=== PATIENT | male | born 2000 | race Caucasian/White ===

== ENCOUNTER 2022-07-04 21:40 | Inpatient (IN) ==
--- NOTE | 2022-07-04 23:20 | Emergency Department Note ---
History of Present Illness General Chief complaint: Mental Health Evaluation Stated complaint: 201 ASSESSMENT Time Seen by Provider: 07/04/22 22:59 Source: patient Mode of arrival: ambulatory Limitations: no limitations History of Present Illness Provider complaint: Mental health evaluation This is a 21-year-old male presents for mental health evaluation is a [address] Patient with a history of depression and states he does see psychiatry. Patient's does occasionally use alcohol and marijuana recreationally. He does not feel it is a problem. He states he does take Prozac but has been inconsistent in doing so. Mother called case management to discuss her concerns as he has been making statements of suicidal ideation to her over phone and text all day. He does have prior history of depression and suicidal ideation. This evening after an argument with his older brother, he made statements of suicida lity and stated that he intended to cut his throat and had a kitchen knife sitting next to him. Home Medications Medication Instructions Recorded Confirmed Type fluoxetine 20 mg capsule 20 mg PO DAILY 07/05/22 07/05/22 History Allergies Allergy/AdvReac Type Severity Reaction Status Date / Time No Known Allergies Allergy Verified 07/05/22 10:41 Past Med/Surg History Social History Smoking Status: Current every day smoker Tobacco Type: E-cigarettes / Vaping Preferred Language: Faroese Communication Ability: Effective Sagger Soak Required: No Beliefs That Will Affect Care: None Feels Safe at Home: Yes Assistive Devices: Glasses Review of Systems A total of 10 systems reviewed and were otherwise negative All systems reviewed & are unremarkable except as noted in HPI & below Physical Exam Vital Signs Vital Signs - 24 hr 07/04/22 21:48 Temperature 36.8 C Temperature Source Oral Pulse Rate 101 H Respiratory Rate 20 Blood Pressure 134/85 Blood Pressure Mean 101 Pulse Oximetry 96 Oxygen Delivery Method Room Air Sepsis Recent Fever Within 48 Hours No Sepsis New/Unexplained Change in Mental Status N/A Sepsis Action Taken by Nursing No Action Required GENERAL: alert, well appearing, well nourished, no distress, non-toxic EYE EXAM: normal conjunctiva, PERRL and EOM's grossly intact OROPHARYNX: no exudate, no erythema, lips, buccal mucosa, and tongue normal and mucous membranes are moist NECK: supple, no nuchal rigidity, no adenopathy, non-tender LUNGS: Clear to auscultation. Normal chest wall mechanics, no w/r/r HEART: no murmurs, S1 normal and S2 normal ABDOMEN: abdomen soft, non-tender, normo-active bowel sounds, no masses, no rebound or guarding. BACK: Back is symmetrical on inspection and there is no deformity, no midline tenderness, no CVA tenderness. SKIN: no rashes and no bruising UPPER EXTREMITIES: upper extremities are grossly normal. FROM, nml pulses b/l. LOWER EXTREMITIES: No pitting edema. FROM, nml pulses b/l. NEURO EXAM: Normal sensorium, cranial nerves II-XII grossly intact, normal speech, no gross weakness of arms, no gross weakness of legs. Gross sensation intact. Course Course 0400: 201 signed by me. Medical Decision Making Differential Diagnosis Differential diagnoses considered include mood disorder, infection, hypoglycemia, electrolyte abnormalities, cardiac sources, intracerebral event, toxicologic, neurologic, as well as others. Medical Records Attestation: I reviewed the patient's medical records. Home Medications Current Medication List: was personally reviewed by me Laboratory Data Attestation: I reviewed the patient's lab results. Result diagrams: 07/04/22 23:35 07/04/22 23:35 Lab Results 07/04/22 07/04/22 07/04/22 Range/Units 21:56 21:56 21:56 WBC (4.8-10.8) K/ul RBC (4.63-6.08) M/uL Hgb (14.0-18.0) g/dl Hct (40.1-51.0) % MCV (80.0-100.0) fL MCH (25.0-34.0) pg MCHC (32.0-36.0) g/dL RDW Std Deviation (36.4-46.3) fL RDW Coeff of Frank (11.5-14.5) % Plt Count (130-400) K/uL MPV (9.4-12.4) fL Immature Gran % (Auto) % Neut % (Auto) % Lymph % (Auto) % Kidder % (Auto) % Eos % (Auto) % Baso % (Auto) % Neut # (Auto) (1.4-6.5) K/uL Lymph # (Auto) (1.2-3.4) K/uL Kidder # (Auto) (0.24-0.82) K/uL Eos # (Auto) (0-0.50) K/uL Baso # (Auto) (0-0.2) K/uL Immature Gran # (Auto) (0.00-0.02) K/uL Sodium (136-145) mmol/L Potassium (3.5-5.1) mmol/L Chloride (98-107) mmol/L Carbon Dioxide (21-32) mmol/L Anion Gap (3-11) BUN (6-23) mg/dl Creatinine (0.6-1.4) mg/dl Est Cr Clr Drug Dosing ml/min Est GFR ( Amer) ml/min Est GFR (Non-Af Amer) ml/min BUN/Creatinine Ratio (10-20) Glucose (70-99(Fasting)) mg/dl Calcium (8.5-10.1) mg/dl Total Bilirubin (0.2-1.0) mg/dl AST (13-39) U/L ALT (7-52) U/L Alkaline Phosphatase (34-104) U/L Total Protein (6.0-8.3) gm/dl Albumin (3.4-5.0) gm/dl Globulin (2.5-4.0) gm/dl Albumin/Globulin Ratio (0.9-2) TSH (0.300-4.500) uIu/ml Urine Color Yellow Urine Appearance Clear (Clear) Urine pH 6.5 (4.5-7.5) Ur Specific Mulberry 1.003 (1.000-1.030) Urine Protein Negative (Negative) Urine Glucose (UA) Negative (Negative) Urine Ketones Negative (Negative) Urine Blood Negative (Negative) Urine Nitrite Negative (Negative) Urine Bilirubin Negative (Negative) Urine Urobilinogen Negative (Negative) Ur Leukocyte Esterase Negative (Negative) Salicylates (3.0-30) mg/dl Urine Opiates Screen Neg (Neg) Ur Methadone, Qual Neg (Neg) Acetaminophen (10-30) ug/ml Urine Barbiturates Neg (Neg) Ur Phencyclidine (PCP) Neg (Neg) U Amphetamin/Meth Scrn Neg (Neg) MDMA (Ecstasy) Screen Neg (Neg) U Benzodiazepines Scrn Neg (Neg) Ur Cocaine Metabolite Neg (Neg) U Marijuana (THC) Screen Pos H (Neg) Ethyl Alcohol mg/dL (<10.0) mg/dl SARS-CoV-2, RNA, NAAT NEGATIVE (NEGATIVE) 07/04/22 07/04/22 07/04/22 Range/Units 23:35 23:35 23:35 WBC 4.43 L (4.8-10.8) K/ul RBC 4.99 (4.63-6.08) M/uL Hgb 15.3 (14.0-18.0) g/dl Hct 44.6 (40.1-51.0) % MCV 89.4 (80.0-100.0) fL MCH 30.7 (25.0-34.0) pg MCHC 34.3 (32.0-36.0) g/dL RDW Std Deviation 40.4 (36.4-46.3) fL RDW Coeff of Frank 12.6 (11.5-14.5) % Plt Count 311 (130-400) K/uL MPV 9.5 (9.4-12.4) fL Immature Gran % (Auto) 0.2 % Neut % (Auto) 53.5 % Lymph % (Auto) 35.9 % Kidder % (Auto) 8.6 % Eos % (Auto) 0.7 % Baso % (Auto) 1.1 % Neut # (Auto) 2.37 (1.4-6.5) K/uL Lymph # (Auto) 1.59 (1.2-3.4) K/uL Kidder # (Auto) 0.38 (0.24-0.82) K/uL Eos # (Auto) 0.03 (0-0.50) K/uL Baso # (Auto) 0.05 (0-0.2) K/uL Immature Gran # (Auto) 0.01 (0.00-0.02) K/uL Sodium 142 (136-145) mmol/L Potassium 3.9 (3.5-5.1) mmol/L Chloride 108 H (98-107) mmol/L Carbon Dioxide 27 (21-32) mmol/L Anion Gap 7 (3-11) BUN 7 (6-23) mg/dl Creatinine 0.72 (0.6-1.4) mg/dl Est Cr Clr Drug Dosing 140.5 ml/min Est GFR ( Amer) > 150.0 ml/min Est GFR (Non-Af Amer) 135.2 ml/min BUN/Creatinine Ratio 9.7 L (10-20) Glucose 93 (70-99(Fasting)) mg/dl Calcium 9.8 (8.5-10.1) mg/dl Total Bilirubin 0.4 (0.2-1.0) mg/dl AST 18 (13-39) U/L ALT 14 (7-52) U/L Alkaline Phosphatase 89 (34-104) U/L Total Protein 8.4 H (6.0-8.3) gm/dl Albumin 5.0 (3.4-5.0) gm/dl Globulin 3.4 (2.5-4.0) gm/dl Albumin/Globulin Ratio 1.5 (0.9-2) TSH 3.153 (0.300-4.500) uIu/ml Urine Color Urine Appearance (Clear) Urine pH (4.5-7.5) Ur Specific [place] (1.000-1.030) Urine Protein (Negative) Urine Glucose (UA) (Negative) Urine Ketones (Negative) Urine Blood (Negative) Urine Nitrite (Negative) Urine Bilirubin (Negative) Urine Urobilinogen (Negative) Ur Leukocyte Esterase (Negative) Salicylates (3.0-30) mg/dl Urine Opiates Screen (Neg) Ur Methadone, Qual (Neg) Acetaminophen (10-30) ug/ml Urine Barbiturates (Neg) Ur Phencyclidine (PCP) (Neg) U Amphetamin/Meth Scrn (Neg) MDMA (Ecstasy) Screen (Neg) U Benzodiazepines Scrn (Neg) Ur Cocaine Metabolite (Neg) U Marijuana (THC) Screen (Neg) Ethyl Alcohol mg/dL (<10.0) mg/dl SARS-CoV-2, RNA, NAAT (NEGATIVE) 07/04/22 07/04/22 Range/Units 23:35 23:35 WBC (4.8-10.8) K/ul RBC (4.63-6.08) M/uL Hgb (14.0-18.0) g/dl Hct (40.1-51.0) % MCV (80.0-100.0) fL MCH (25.0-34.0) pg MCHC (32.0-36.0) g/dL RDW Std Deviation (36.4-46.3) fL RDW Coeff of Frank (11.5-14.5) % Plt Count (130-400) K/uL MPV (9.4-12.4) fL Immature Gran % (Auto) % Neut % (Auto) % Lymph % (Auto) % Kidder % (Auto) % Eos % (Auto) % Baso % (Auto) % Neut # (Auto) (1.4-6.5) K/uL Lymph # (Auto) (1.2-3.4) K/uL Kidder # (Auto) (0.24-0.82) K/uL Eos # (Auto) (0-0.50) K/uL Baso # (Auto) (0-0.2) K/uL Immature Gran # (Auto) (0.00-0.02) K/uL Sodium (136-145) mmol/L Potassium (3.5-5.1) mmol/L Chloride (98-107) mmol/L Carbon Dioxide (21-32) mmol/L Anion Gap (3-11) BUN (6-23) mg/dl Creatinine (0.6-1.4) mg/dl Est Cr Clr Drug Dosing ml/min Est GFR ( Amer) ml/min Est GFR (Non-Af Amer) ml/min BUN/Creatinine Ratio (10-20) Glucose (70-99(Fasting)) mg/dl Calcium (8.5-10.1) mg/dl Total Bilirubin (0.2-1.0) mg/dl AST (13-39) U/L ALT (7-52) U/L Alkaline Phosphatase (34-104) U/L Total Protein (6.0-8.3) gm/dl Albumin (3.4-5.0) gm/dl Globulin (2.5-4.0) gm/dl Albumin/Globulin Ratio (0.9-2) TSH (0.300-4.500) uIu/ml Urine Color Urine Appearance (Clear) Urine pH (4.5-7.5) Ur Specific [place] (1.000-1.030) Urine Protein (Negative) Urine Glucose (UA) (Negative) Urine Ketones (Negative) Urine Blood (Negative) Urine Nitrite (Negative) Urine Bilirubin (Negative) Urine Urobilinogen (Negative) Ur Leukocyte Esterase (Negative) Salicylates < 3.0 L (3.0-30) mg/dl Urine Opiates Screen (Neg) Ur Methadone, Qual (Neg) Acetaminophen < 3 L (10-30) ug/ml Urine Barbiturates (Neg) Ur Phencyclidine (PCP) (Neg) U Amphetamin/Meth Scrn (Neg) MDMA (Ecstasy) Screen (Neg) U Benzodiazepines Scrn (Neg) Ur Cocaine Metabolite (Neg) U Marijuana (THC) Screen (Neg) Ethyl Alcohol mg/dL 129.4 H (<10.0) mg/dl SARS-CoV-2, RNA, NAAT (NEGATIVE) MDM Narrative This is a 21-year-old male presents emergency department for mental health evaluation. Patient with history of depression, admitted to suicidal ideation with a plan to cut his throat. Patient medically cleared and was evaluated by case management. Patient accepted to [facility] [address] for additional inpatient mental health treatment. Impression & Plan Depression, Alcoholic intoxication, Suicidal ideation Discharge Plan Visit Data Chief Complaint: Mental Health Evaluation Stated Complaint: 201 ASSESSMENT ED Provider: Imani Jones Discharge Problem: Depression, Alcoholic intoxication, Suicidal ideation Patient Disposition: Admitted As Inpatient Discharge Instructions Interventions: ED Discharge Assessment Last Done: 07/05/22 04:02
[2022-07-04 23:33] LABS: Appearance Urine Clear (Clear); Bilirubin Urine Negative (Negative); Blood Urine Negative (Negative); Color Urine Yellow; Glucose Urine UA Negative (Negative); Ketones Urine Negative (Negative); Leukocyte Esterase Urine Negative (Negative); Nitrite Urine Negative (Negative); Protein Urine Negative (Negative); Specific Gravity Urine 1.003 (1.000-1.030); Urobilinogen Urine Negative (Negative); pH Urine 6.5 (4.5-7.5)
[2022-07-04 23:56] LABS: Basophils # (auto) 0.05 K/uL (0-0.2); Basophils % (auto) 1.1 %; Eosinophils # (auto) 0.03 K/uL (0-0.50); Eosinophils % (auto) 0.7 %; Hematocrit (blood only) 44.6 % (40.1-51.0); Hemoglobin 15.3 g/dl (14.0-18.0); Immature Granulocytes # (auto) 0.01 K/uL (0.00-0.02); Immature Granulocytes % (auto) 0.2 %; Lymphocytes # (auto) 1.59 K/uL (1.2-3.4); Lymphocytes % (auto) 35.9 %; Mean Corpuscular Hemoglobin 30.7 pg (25.0-34.0); Mean Corpuscular Hgb Conc 34.3 g/dL (32.0-36.0); Mean Corpuscular Volume 89.4 fL (80.0-100.0); Mean Platelet Volume 9.5 fL (9.4-12.4); Monocytes # (auto) 0.38 K/uL (0.24-0.82); Monocytes % (auto) 8.6 %; Neutrophils # (auto) 2.37 K/uL (1.4-6.5); Neutrophils % (auto) 53.5 %; Platelet Count 311 K/uL (130-400); RDW Coefficient of Variation 12.6 % (11.5-14.5); RDW Standard Deviation 40.4 fL (36.4-46.3); Red Blood Count 4.99 M/uL (4.63-6.08); White Blood Count 4.43 K/ul (4.8-10.8)
[2022-07-05 00:25] LABS: Acetaminophen < 3 ug/ml (10-30); Salicylate < 3.0 mg/dl (3.0-30)
[2022-07-05 00:29] LABS: Alanine Aminotransferase 14 U/L (7-52); Albumin Globulin Ratio 1.5 (0.9-2); Alkaline Phosphatase 89 U/L (34-104); Anion Gap 7 (3-11); Aspartate Aminotransferase 18 U/L (13-39); BUN Creatinine Ratio 9.7 (10-20); Bilirubin,Total 0.4 mg/dl (0.2-1.0); Blood Urea Nitrogen 7 mg/dl (6-23); Calcium 9.8 mg/dl (8.5-10.1); Carbon Dioxide 27 mmol/L (21-32); Chloride 108 mmol/L (98-107); Creatinine Clr Calc Pharmacy 140.5 ml/min; Est GFR (African American) > 150.0 ml/min; Est GFR (Non-African American) 135.2 ml/min; Globulin 3.4 gm/dl (2.5-4.0); Glucose 93 mg/dl (70-99(Fasting)); Potassium 3.9 mmol/L (3.5-5.1); Sodium 142 mmol/L (136-145); Total Protein 8.4 gm/dl (6.0-8.3)
[2022-07-05 00:36] LABS: Amphetamines+Metham, Urine Neg (Neg); Barbiturates, Urine Neg (Neg); Benzodiazepine, Urine Neg (Neg); Cocaine, Urine Neg (Neg); MDMA (Ecstacy), Urine Neg (Neg); Methadone, Urine Neg (Neg); Opiate, Urine Neg (Neg); Phencyclidine, Urine Neg (Neg)
[2022-07-05] MEDS ORDERED: ALUMINUM/MAGNESIUM SUSP 30 ML UDC PO PRN (06:33)
[2022-07-05] MEDS ORDERED: hydrOXYzine HCl 25 MG TAB PO PRN ×2 (06:33)
[2022-07-05] MEDS ORDERED: MAGNESIUM HYDROXIDE SUSP 30 ML UDC PO PRN (06:33)
[2022-07-05] MEDS ORDERED: ACETAMINOPHEN 325 MG TAB PO PRN (06:33)
[2022-07-05] MEDS ORDERED: BISMUTH SUBSALICYLATE LIQD 236 ML PO PRN (06:33)
[2022-07-05] MEDS ORDERED: SODIUM CHLORIDE 0.65% NA SOLN 45 ML (OCEAN) PRN (06:33)
--- NOTE | 2022-07-05 08:44 | History & Physical ---
Date of Service July 05, 2022 Impression / Recommendations Impression 21 year old [employer] student with a history of depression and restrictive eating who was admitted for worsening depression and SI with a plan in the context of not feeling that [employer] is a good fit and struggling to find a group of peers he enjoys being with. Diagnostically consistent with major depressive disorder with anxious distress and restrictive eating per history. The patient is deemed unstable and requires psychiatric hospitalization for diagnostic clarification, safety and stabilization, medication management and development of further coping skills. Discussed medication treatment options in detail. Discussed risks, benefits and alternatives. Patient would like to start and consented to sertraline for MDD and anxiety. Reviewed side effects including but not limited to: GI, CIFUENTES, sexual side effects, and counseled on black box warning of potential for emergence of or increased SI and need to let staff know should this occur or should they feel unsafe. Also discussed importance of seeking emergency care following discharge if this side effect occurs in the future. (1) Recurrent severe major depressive disorder with anxiety: (2) Suicidal ideation: (3) Eating disorder, unspecified: Plan 07/05/22: The patient was admitted to the [facility] ([facility] mental health unit) on q15 min checks (behavioral with suicide precautions) for safety. The patient will participate in group, recreational, and milieu therapies and will be offered additional individual and family sessions as clinically appropriate. -Start sertraline 25mg qd tomorrow morning as he wants to discuss it with his family too prior to starting this and understands he can decline dose tomorrow if he changes his mind -Vistaril 50mg qhs prn for insomnia Inventory Assets Strengths: supportive relationships, willing to get treatment, motivated to do therapy Needs: safety and stabilization, medication adjustment, additional coping skills, increased outpatient services Suicide Risk Level Suicide Risk Level: High-Moderate (q15 min suicide checks) (High-Moderate due to severe depression with SI with plan prior to admission but feels safe in the hospital, able to safety contract and agrees to let nursing/staff know should they develop plan, intent or feel unable to remain safe.) Suicide Risk Level Comments: Risk Factors Assessment Male: Yes : Yes Do You Have Access To A Gun?: No Mental Health Diagnoses: Yes Previous Attempt: No Family History of Suicide: No Previous Psychiatric Hospitalization: Yes Protective Factors Assessment Employed: No Stable Relationships: Yes Supportive Family: Yes Psychiatric History Identifying Data HOANG HARTLEY is a 21-year-old and [employer] student who currently lives off-campus in an apartment with roommates, has a history of depression, anxiety and restrictive eating, and was admitted on 07/05/22 03:36 on a 201 voluntary commitment for depression and SI with plan. Chief Complaint "I'm been getting a lot more depressed". History of Present Illness Brought in by police after telling his mother that he was suicidal after drinking alcohol and getting into an argument with his brother. He called police, at the encouragement of his mother and sister, after considering using a knife with plan to cut his throat to . Restarted fluoxetine three days ago after having stopped it this summer due to side effects of making him feel numb. He restarted the fluoxetine because "I'd not been feeling good" which he elaborates as "feeling a disconnect", low motivation, social isolation, hopelessness, helplessness, low energy, sleep has been "fine" but more difficulty falling asleep, and very low appetite. Has lost ~7-8 lbs since the summer and has a history of restriction but feels weight loss in a combination of restriction and unintentional due to low appetite but it doesn't want to be losing weight and would like to regain what he's lost. Yesterday was the first day since that he re-developed suicidal ideation. He felt unable to remain safe on his own given that those thoughts had started. He's considering tra nsferring to a new college as he's been unhappy at [employer] and considering starting there after the fall semester. This process has been stressful in getting necessary paperwork completed by register. Notes that living with roommates has made eating more difficult at times especially with grocery shopping and they will sometimes eat his food that he's planned for meals. He notes his teenage and young adult years have been difficult and notes he often feels he gets taken advantage of. Has started vaping this year due to being more stressed out and struggles to relax especially in the evenings. Feels it's been difficult to engage with his mental health providers as those appointment were via telemedicine. Further recent history reviewed and confirmed via ED CM note from 07/04/22 and 07/05/22 with clarifications in bold: "Met with Hoang bedside to complete mental health evaluation. Hoang stated he had "a meltdown after I saw my brother." He stated conflict between he and bother "because we are just two different people." Hoang stated he told brother to leave and then called his mother. He admits to telling mother he "didn't feel safe alone. [place] vulnerable to myself." Hoang threatened to hurt self with a kitchen knife while he was talking to mother on the phone. Hoang stated his mother sent his sister to check on him and while there were talking he agreed to call 911. Hoang admits to telling patrol police lieutenant that his intent was to cut his neck with knife." Patient stated he had a similar experience in 2020 with attempt to OD on pills. (He clarifies it was not an attempt but had thoughts of plan to overdose in 2019) He stated he was admitted to [facility] at that time. Hoang is not compliant with his medication and and admits to not taking meds. Hoang stated he has been taking his prescribed prozac for the past three days. Hoang has a therapist at [facility] (has a psychiatrist but no therapist). Patient denies hallucinations, paranoia, or delusional thinking Hoang stated he drinks alcohol socially. He denies substance abuse. Hoang is agreeable with recommendation for inpatient mental health treatment." Psychiatric ROS notable for no current nor history of symptoms of galilea, psychosis, OCD nor self-harm. Past Psychiatric History Current Psychiatric Diagnosis: Depression; Anxiety Outpatient Services: psychiatrist Dr. Mays via phone call for 2 years via [facility] but recently learned he left the practice and was re-assigned to a new provider Dr. Jeffries (not sure of last name) via phone call on 07/03/22. No current therapist, last saw a therapist in Jul 2021. Previous Psych Admissions: [facility] Sep 2019-for severe depression and SI with plan to overdose but denies an attempt or acting on these thoughts Do You Have Access To A Gun?: No History of Previous Suicide Attempt: No Past Medication Trials: fluoxetine 20mg daily from 09/2019 - summer 2021-didn't like that it made him feel sluggish and tired Past Head Trauma/Neuro History History of Concussion/Seizure: No Allergies Allergy/AdvReac Type Severity Reaction Status Date / Time No Known Allergies Allergy Verified 07/05/22 10:41 Home Medications Medication Instructions Recorded Confirmed Type fluoxetine 20 mg capsule 20 mg PO DAILY 07/05/22 07/05/22 History Family History Family History of: Depression Family Mental Health History Comment: Mother taking Zoloft, and per pt most likely other mood disorders in the family and extended family. Alcohol History Hx of Alcohol Use Over the Past 12 Months: Yes (socially, 5-6 drinks) AUDIT Total Score: 4 Feels he drinks less than the typical student, socially on the weekends 4-5 drinks on the weekend but notes "I know it's not good for me or a good outlet an d don't like to feel out of control". Smoking Use Have You Smoked or Used Tobacco Products in the Last 30 Days: Yes tobacco type: e-cigarettes Smoking Status: Current every day smoker Substance History Hx of Prescription Med Misuse Over the Past 12 Months: No Hx of Over the Counter Med Misuse Over the Past 12 Months: No Hx of Inhalent Misuse Over the Past 12 Months: No Hx of Organic Substance Use Over the Past 12 Months: Yes (positive for THC) Hx of Illegal Substances/Street Drug Use Over Past 12 Months: No Problems as a Result of Past Substance Use: None Identified cannabis use 2-3 times per week, he likes that at nighttime it relaxes him and takes the edge off, he doesn't like that it makes him feel tired and sluggish Personal History Living Arrangements: Apartment Childhood: From [place], family also has a home in [place]. Has older sister and brother. Highest Grade Completed: Some College (current [employer] student) Employment Status: Student (sophomore in psychology) Marital Status: Single Number Of Children: n/a Beliefs That Will Affect Care: None Current Legal Problems: No Hx Legal Problems: No Hx Traumatic Life Events: No Patient History Social History Smoking Status: Current every day smoker Tobacco Type: E-cigarettes / Vaping Preferred Language: Latvian Communication Ability: Effective Pyridine Operator Required: No Beliefs That Will Affect Care: None Feels Safe at Home: Yes Assistive Devices: Glasses Review of Systems Review of Systems: All systems reviewed & are unremarkable except as noted in HPI & below Physical Exam Psychiatric: Orientation: alert and oriented x 3 Apperance: appropriately dressed and appropriately groomed Eye Contact: good eye contact Motor Behavior: no abnormal motor movements Speech: normal rate/rhythm/volume of speech Affect: + depressed affect and + anxious affect Mood: + depressed mood and + anxious mood Thought Process: goal directed thought process Thought Content: reality based without delusions Suicidal Thoughts: denies suicidal thoughts (but having all day yesterday prior to admission), denies suicidal plan and denies suicidal intent Homicidal Thoughts: denies homicidal thoughts Hallucinations: no auditory hallucinations and no visual hallucinations Cognition: recent memory grossly intact, remote memory grossly intact, attention grossly intact and language grossly intact Estimated Intelligence: consistent with education level Insight: + fair insight Judgement: + limited judgement Vital Signs (Past 24 Hours): Last Vital Signs Temp 37.1 C 07/05/22 04:44 Pulse 67 07/05/22 04:44 Resp 18 07/05/22 04:44 BP 122/76 07/05/22 04:44 Pulse Ox 96 07/04/22 21:48 O2 Del Method 07/05/22 04:02 Exam Statement: A physical exam was performed in the ED by Dr. Jnoes for the purposes of medical clearance. I accept that physical as correct and adequate for the purposes of the inpatient physical exam. Results & Data ([facility]) Laboratory Results Laboratory Results - last 24 hr 07/04/22 07/04/22 07/04/22 21:56 21:56 21:56 WBC RBC Hgb Hct MCV MCH MCHC RDW Std Deviation RDW Coeff of Frank Plt Count MPV Immature Gran % (Auto) Neut % (Auto) Lymph % (Auto) [place] % (Auto) Eos % (Auto) Baso % (Auto) Neut # (Auto) Lymph # (Auto) [place] # (Auto) Eos # (Auto) Baso # (Auto) Immature Gran # (Auto) Sodium Potassium Chloride Carbon Dioxide Anion Gap BUN Creatinine Est Cr Clr Drug Dosing Est GFR ( Amer) Est GFR (Non-Af Amer) BUN/Creatinine Ratio Glucose Calcium Total Bilirubin AST ALT Alkaline Phosphatase Total Protein Albumin Globulin Albumin/Globulin Ratio TSH Urine Color Yellow Urine Appearance Clear Urine pH 6.5 Ur Specific [place] 1.003 Urine Protein Negative Urine Glucose (UA) Negative Urine Ketones Negative Urine Blood Negative Urine Nitrite Negative Urine Bilirubin Negative Urine Urobilinogen Negative Ur Leukocyte Esterase Negative Salicylates Urine Opiates Screen Neg Ur Methadone, Qual Neg Acetaminophen Urine Barbiturates Neg Ur Phencyclidine (PCP) Neg U Amphetamin/Meth Scrn Neg MDMA (Ecstasy) Screen Neg U Benzodiazepines Scrn Neg Ur Cocaine Metabolite Neg U Marijuana (THC) Screen Pos H U Marijuana THC Carboxy Drug Screen Comment Ethyl Alcohol mg/dL SARS-CoV-2, RNA, NAAT NEGATIVE 07/04/22 07/04/22 07/04/22 21:56 23:35 23:35 WBC 4.43 L RBC 4.99 Hgb 15.3 Hct 44.6 MCV 89.4 MCH 30.7 MCHC 34.3 RDW Std Deviation 40.4 RDW Coeff of Frank 12.6 Plt Count 311 MPV 9.5 Immature Gran % (Auto) 0.2 Neut % (Auto) 53.5 Lymph % (Auto) 35.9 [place] % (Auto) 8.6 Eos % (Auto) 0.7 Baso % (Auto) 1.1 Neut # (Auto) 2.37 Lymph # (Auto) 1.59 [place] # (Auto) 0.38 Eos # (Auto) 0.03 Baso # (Auto) 0.05 Immature Gran # (Auto) 0.01 Sodium 142 Potassium 3.9 Chloride 108 H Carbon Dioxide 27 Anion Gap 7 BUN 7 Creatinine 0.72 Est Cr Clr Drug Dosing 140.5 Est GFR ( Amer) > 150.0 Est GFR (Non-Af Amer) 135.2 BUN/Creatinine Ratio 9.7 L Glucose 93 Calcium 9.8 Total Bilirubin 0.4 AST 18 ALT 14 Alkaline Phosphatase 89 Total Protein 8.4 H Albumin 5.0 Globulin 3.4 Albumin/Globulin Ratio 1.5 TSH Urine Color Urine Appearance Urine pH Ur Specific [place] Urine Protein Urine Glucose (UA) Urine Ketones Urine Blood Urine Nitrite Urine Bilirubin Urine Urobilinogen Ur Leukocyte Esterase Salicylates Urine Opiates Screen Ur Methadone, Qual Acetaminophen Urine Barbiturates Ur Phencyclidine (PCP) U Amphetamin/Meth Scrn MDMA (Ecstasy) Screen U Benzodiazepines Scrn Ur Cocaine Metabolite U Marijuana (THC) Screen U Marijuana THC Carboxy Pending Drug Screen Comment Pending Ethyl Alcohol mg/dL SARS-CoV-2, RNA, NAAT 07/04/22 07/04/22 07/04/22 23:35 23:35 23:35 WBC RBC Hgb Hct MCV MCH MCHC RDW Std Deviation RDW Coeff of Frank Plt Count MPV Immature Gran % (Auto) Neut % (Auto) Lymph % (Auto) [place] % (Auto) Eos % (Auto) Baso % (Auto) Neut # (Auto) Lymph # (Auto) [place] # (Auto) Eos # (Auto) Baso # (Auto) Immature Gran # (Auto) Sodium Potassium Chloride Carbon Dioxide Anion Gap BUN Creatinine Est Cr Clr Drug Dosing Est GFR ( Amer) Est GFR (Non-Af Amer) BUN/Creatinine Ratio Glucose Calcium Total Bilirubin AST ALT Alkaline Phosphatase Total Protein Albumin Globulin Albumin/Globulin Ratio TSH 3.153 Urine Color Urine Appearance Urine pH Ur Specific [place] Urine Protein Urine Glucose (UA) Urine Ketones Urine Blood Urine Nitrite Urine Bilirubin Urine Urobilinogen Ur Leukocyte Esterase Salicylates < 3.0 L Urine Opiates Screen Ur Methadone, Qual Acetaminophen < 3 L Urine Barbiturates Ur Phencyclidine (PCP) U Amphetamin/Meth Scrn MDMA (Ecstasy) Screen U Benzodiazepines Scrn Ur Cocaine Metabolite U Marijuana (THC) Screen U Marijuana THC Carboxy Drug Screen Comment Ethyl Alcohol mg/dL 129.4 H SARS-CoV-2, RNA, NAAT Current Inpatient Medications Current Inpatient Medications: Current Inpatient Medications Acetaminophen (Acetaminophen 325 Mg Tab) 650 mg PO Q4H PRN PRN Reason: Headache or Minor Fever Stop: 08/04/22 06:32 Al Hydrox/Mg Hydrox/Simethicone (Aluminum/Magnesium Susp 30 Ml Udc) 30 ml PO Q4H PRN PRN Reason: GI Upset Stop: 08/04/22 06:32 Bismuth Subsalicylate (Bismuth Subsalicylate Liqd 236 Ml) 15 ml PO PRN PRN PRN Reason: Loose Stool Stop: 08/04/22 06:32 Hydroxyzine HCl (Hydroxyzine Hcl 25 Mg Tab) 50 mg PO HSZ PRN PRN Reason: Insomnia Stop: 08/04/22 06:32 Hydroxyzine HCl (Hydroxyzine Hcl 25 Mg Tab) 25 mg PO Q4H PRN PRN Reason: Anxiety Stop: 08/04/22 06:32 Magnesium Hydroxide (Magnesium Hydroxide Susp 30 Ml Udc) 30 ml PO DAILY PRN PRN Reason: Constipation Stop: 08/04/22 06:32 Sodium Chloride (Sodium Chloride 0.65% Na Soln 45 Ml ([place])) 1 - 2 sprays NA PRN PRN PRN Reason: Nasal Dryness/Congestion Stop: 08/04/22 06:32
--- NOTE | 2022-07-06 08:35 | Psychiatric Progress Note ---
Date of Service July 06, 2022 Impression / Recommendations Impression 21 year old [employer] student with a history of depression and restrictive eating who was admitted for worsening depression and SI with a plan in the context of not feeling that [employer] is a good fit and struggling to find a group of peers he enjoys being with. Diagnostically consistent with major depressive disorder with anxious distress and restrictive eating per history. The patient is deemed unstable and requires psychiatric hospitalization for diagnostic clarification, safety and stabilization, medication management and development of further coping skills. 07/06/22: Remains depressed but slightly more hopeful. Seen by communications director. Tolerating initial dose of sertraline. (1) Recurrent severe major depressive disorder with anxiety: (2) Suicidal ideation: (3) Eating disorder, unspecified: Plan 07/06/22: Continue current medications and tx plan. 07/05/22: The patient was admitted to the [facility] ([facility]) on q15 min checks (behavioral with suicide precautions) for safety. The patient will participate in group, recreational, and milieu therapies and will be offered additional individual and family sessions as clinically appropriate. -Start sertraline 25mg qd tomorrow morning as he wants to discuss it with his family too prior to starting this and understands he can decline dose tomorrow if he changes his mind -Vistaril 50mg qhs prn for insomnia Inventory Assets Strengths: supportive relationships, willing to get treatment, motivated to do therapy Needs: safety and stabilization, medication adjustment, additional coping skills, increased outpatient services Suicide Risk Level Suicide Risk Level: Moderate (q15 min suicide checks) (High-Moderate due to severe depression with SI with plan prior to admission but denies SI now, feels safe in the hospital, able to safety contract and agrees to let nursing/staff know should they develop plan, intent or feel unable to remain safe.) Suicide Risk Level Comments: Risk Factors Assessment Male: Yes : Yes Do You Have Access To A Gun?: No Mental Health Diagnoses: Yes Previous Attempt: No Family History of Suicide: No Previous Psychiatric Hospitalization: Yes Protective Factors Assessment Employed: No Stable Relationships: Yes Supportive Family: Yes Interval History Identifying Information HOANG HARTLEY is a 21-year-old and [employer] student who currently lives off-campus in an apartment with roommates, has a history of depression, anxiety and restrictive eating, and was admitted on 07/05/22 03:36 on a 201 voluntary commitment for depression and SI with plan. Chief Complaint "I'm feeling a little more hopeful". Review of Systems Sleep Information Total Hours of Sleep: 10.25 Sleep Comments: Meal Information Percent Meal Consumed - Breakfast: 90 Percent Meal Consumed - Lunch: 80 Percent Meal Consumed - Dinner: 100 Subjective Subjective Patient was seen & assessed and interval progress reviewed with treatment team nursing and social work. Attended group last night and then went to bed early. No side effects from first dose of sertraline, feeling a little more hopeful. Still with depression. Finding groups helpful. Physical Exam Psychiatric Orientation: alert and oriented x 3 Apperance: appropriately dressed and appropriately groomed Eye Contact: good eye contact Motor Behavior: no abnormal motor movements Speech: normal rate/rhythm/volume of speech Affect: + depressed affect and + anxious affect Mood: + depressed mood and + anxious mood Thought Process: goal directed thought process Thought Content: reality based without delusions Suicidal Thoughts: denies suicidal thoughts, denies suicidal plan and denies suicidal intent Homicidal Thoughts: denies homicidal thoughts Hallucinations: no auditory hallucinations and no visual hallucinations Cognition: recent memory grossly intact, remote memory grossly intact, attention grossly intact and language grossly intact Estimated Intelligence: consistent with education level Insight: + fair insight Judgement: + limited judgement Vital Signs (Past 24 Hours) Last Vital Signs Temp 36.3 C L 07/06/22 06:30 Pulse 65 07/06/22 06:31 Resp 16 07/06/22 06:30 BP 106/68 07/06/22 06:31 Pulse Ox 96 07/04/22 21:48 O2 Del Method 07/05/22 04:02 Results & Data ([facility]) Current Inpatient Medications Current Inpatient Medications: Current Inpatient Medications Acetaminophen (Acetaminophen 325 Mg Tab) 650 mg PO Q4H PRN PRN Reason: Headache or Minor Fever Stop: 08/04/22 06:32 Al Hydrox/Mg Hydrox/Simethicone (Aluminum/Magnesium Susp 30 Ml Udc) 30 ml PO Q4H PRN PRN Reason: GI Upset Stop: 08/04/22 06:32 Bismuth Subsalicylate (Bismuth Subsalicylate Liqd 236 Ml) 15 ml PO PRN PRN PRN Reason: Loose Stool Stop: 08/04/22 06:32 Hydroxyzine HCl (Hydroxyzine Hcl 25 Mg Tab) 50 mg PO HSZ PRN PRN Reason: Insomnia Stop: 08/04/22 06:32 Hydroxyzine HCl (Hydroxyzine Hcl 25 Mg Tab) 25 mg PO Q4H PRN PRN Reason: Anxiety Stop: 08/04/22 06:32 Magnesium Hydroxide (Magnesium Hydroxide Susp 30 Ml Udc) 30 ml PO DAILY PRN PRN Reason: Constipation Stop: 08/04/22 06:32 Sertraline HCl (Sertraline Hcl 50 Mg Tablet) 25 mg PO QAM JUAN DAVID Stop: 08/05/22 08:59 Sodium Chloride (Sodium Chloride 0.65% Na Soln 45 Ml ([place])) 1 - 2 sprays NA PRN PRN PRN Reason: Nasal Dryness/Congestion Stop: 08/04/22 06:32 Mental Health & Subst Abuse Tx Therapist Name of Therapist: Christie mancini [facility] Psychiatric Professor Sculpture Name of Professor Sculpture: Kevin
[2022-07-06] MEDS: SERTRALINE HCL 50 MG TABLET PO SCH (08:52)
[2022-07-07] MEDS: SERTRALINE HCL 50 MG TABLET PO SCH (09:09)
--- NOTE | 2022-07-07 13:07 | Psychiatric Progress Note ---
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 Diagnostically consistent with major depressive disorder with anxious distress and restrictive eating per history. The patient is deemed unstable and requires psychiatric hospitalization for diagnostic clarification, safety and stabilization, medication management and development of further coping skills. 07/07/22: Remains depressed but making progress. Needs family meeting. Continue with titration of sertraline given no side effects to 25mg dose. (1) Recurrent severe major depressive disorder with anxiety: (2) Suicidal ideation: (3) Eating disorder, unspecified: Plan 07/07/22: Increase sertraline to 50mg qd tomorrow. 07/06/22: Continue current medications and tx plan. 07/05/22: The patient was admitted to the [facility] ([facility] mental health unit) on q15 min checks (behavioral with suicide precautions) for safety. The patient will participate in group, recreational, and milieu therapies and will be offered additional individual and family sessions as clinically appropriate. -Start sertraline 25mg qd tomorrow morning as he wants to discuss it with his family too prior to starting this and understands he can decline dose tomorrow if he changes his mind -Vistaril 50mg qhs prn for insomnia Inventory Assets Strengths: supportive relationships, willing to get treatment, motivated to do therapy Needs: safety and stabilization, medication adjustment, additional coping skills, increased outpatient services Suicide Risk Level Suicide Risk Level: Moderate (q15 min suicide checks) (Severe depression with SI with plan prior to admission but denies SI now, feels safe in the hospital, able to safety contract and agrees to let nursing/staff know should they develop plan, intent or feel unable to remain safe.) Suicide Risk Level Comments: Risk Factors Assessment Male: Yes : Yes Do You Have Access To A Gun?: No Mental Health Diagnoses: Yes Previous Attempt: No Family History of Suicide: No Previous Psychiatric Hospitalization: Yes Protective Factors Assessment Employed: No Stable Relationships: Yes Supportive Family: Yes Interval History Identifying Information HOANG HARTLEY is a 21-year-old and [employer] student who currently lives off-campus in an apartment with roommates, has a history of depression, anxiety and restrictive eating, and was admitted on 07/05/22 03:36 on a 201 voluntary commitment for depression and SI with plan. Chief Complaint "My depression is starting to get a little better". Review of Systems Sleep Information Total Hours of Sleep: 7 Meal Information Percent Meal Consumed - Breakfast: 100 Percent Meal Consumed - Lunch: 100 Percent Meal Consumed - Dinner: 100 Subjective Subjective Patient was seen & assessed and interval progress reviewed with treatment team nursing and social work. Feels groups and medication is starting to help his mood. Denies any side effects from sertraline. Consents to further dose titration to 50mg to reach effective dose. Feels meeting with foot drill operator was helpful. Physical Exam Psychiatric Orientation: alert and oriented x 3 Apperance: appropriately dressed and appropriately groomed Eye Contact: good eye contact Motor Behavior: no abnormal motor movements Speech: normal rate/rhythm/volume of speech Affect: + depressed affect and + anxious affect Mood: + depressed mood and + anxious mood Thought Process: goal directed thought process Thought Content: reality based without delusions Suicidal Thoughts: denies suicidal thoughts, denies suicidal plan and denies suicidal intent Homicidal Thoughts: denies homicidal thoughts Hallucinations: no auditory hallucinations and no visual hallucinations Cognition: recent memory grossly intact, remote memory grossly intact, attention grossly intact and language grossly intact Estimated Intelligence: consistent with education level Insight: + fair insight Judgement: + fair judgement Vital Signs (Past 24 Hours) Last Vital Signs Temp 36.3 C L 07/07/22 06:31 Pulse 71 07/07/22 06:31 Resp 16 07/07/22 06:31 BP 106/61 07/07/22 06:31 Pulse Ox 96 07/04/22 21:48 O2 Del Method 07/05/22 04:02 Results & Data ([facility]) Current Inpatient Medications Current Inpatient Medications: Current Inpatient Medications Acetaminophen (Acetaminophen 325 Mg Tab) 650 mg PO Q4H PRN PRN Reason: Headache or Minor Fever Stop: 08/04/22 06:32 Al Hydrox/Mg Hydrox/Simethicone (Aluminum/Magnesium Susp 30 Ml Udc) 30 ml PO Q4H PRN PRN Reason: GI Upset Stop: 08/04/22 06:32 Bismuth Subsalicylate (Bismuth Subsalicylate Liqd 236 Ml) 15 ml PO PRN PRN PRN Reason: Loose Stool Stop: 08/04/22 06:32 Hydroxyzine HCl (Hydroxyzine Hcl 25 Mg Tab) 50 mg PO HSZ PRN PRN Reason: Insomnia Stop: 08/04/22 06:32 Hydroxyzine HCl (Hydroxyzine Hcl 25 Mg Tab) 25 mg PO Q4H PRN PRN Reason: Anxiety Stop: 08/04/22 06:32 Magnesium Hydroxide (Magnesium Hydroxide Susp 30 Ml Udc) 30 ml PO DAILY PRN PRN Reason: Constipation Stop: 08/04/22 06:32 Sertraline HCl (Sertraline Hcl 50 Mg Tablet) 25 mg PO QAM JUAN DAVID Stop: 08/05/22 08:59 Last Admin: 07/07/22 09:09 Dose: 25 mg Sodium Chloride (Sodium Chloride 0.65% Na Soln 45 Ml (Starke)) 1 - 2 sprays NA PRN PRN PRN Reason: Nasal Dryness/Congestion Stop: 08/04/22 06:32 Mental Health & Subst Abuse Tx Psychiatrist Name of Psychiatrist: [facility] Shannan Mcintyre- MIHAELA Soriano Psychiatrist's Date of Appointment with Psychiatrist: 08/04/22 Time of Appointment with Psychiatrist: 2:30p Psychiatric Appointment Comment: telehealth Therapist Name of Therapist: [facility] Shannan Psychiatric-on waitlist Therapist's Date of Therapist Appointment: 08/04/22 Time of Therapist Appointment: 2:30p Therapy Appointment Comment: telehealth Clay Thrower Name of Clay Thrower: None Post Discharge Appointments Primary Care Physician Name Of Family Doctor: [facility] Primary Care Provider Appointment Comment: follow up as needed Contact Information Discharge Discharge Address: [address] [place] [address]
[2022-07-07 22:57] LABS: Marijuana Quant, GCMS Urine 24 ng/mL (<5)
[2022-07-08] MEDS ORDERED: SERTRALINE HCL 50 MG TABLET PO SCH (09:00)
--- NOTE | 2022-07-08 11:51 | Discharge Summary ---
Date of Service July 08, 2022 History of Present Illness Brought in by police after telling his mother that he was suicidal after drinking alcohol and getting into an argument with his brother. He called police, at the encouragement of his mother and sister, after considering using a knife with plan to cut his throat to . Restarted fluoxetine three days ago after having stopped it this summer due to side effects of making him feel numb. He restarted the fluoxetine because "I'd not been feeling good" which he elaborates as "feeling a disconnect", low motivation, social isolation, hopelessness, helplessness, low energy, sleep has been "fine" but more difficulty falling asleep, and very low appetite. Has lost ~7-8 lbs since the summer and has a history of restriction but feels weight loss in a combination of restriction and unintentional due to low appetite but it doesn't want to be losing weight and would like to regain what he's lost. Yesterday was the first day since that he re-developed suicidal ideation. He felt unable to remain safe on his own given that those thoughts had started. He's considering transferring to a new college as he's been unhappy at [employer] and considering starting there after the fall semester. This process has been stressful in getting necessary paperwork completed by register. Notes that living with roommates has made eating more difficult at times especially with grocery shopping and they will sometimes eat his food that he's planned for meals. He notes his teenage and young adult years have been difficult and notes he often feels he gets taken advantage of. Has started vaping this year due to being more stressed out and struggles to relax especially in the evenings. Feels it's been difficult to engage with his mental health providers as those appointment were via telemedicine. Further recent history reviewed and confirmed via ED CM note from 07/04/22 and 07/05/22 with clarifications in bold: "Met with Ky bedside to complete mental health evaluation. Ky stated he had "a meltdown after I saw my brother." He stated conflict between he and bother "because we are just two different people." Ky stated he told brother to leave and then called his mother. He admits to telling mother he "didn't feel safe alone. Cool vulnerable to myself." Ky threatened to hurt self with a kitchen knife while he was talking to mother on the phone. Ky stated his mother sent his sister to check on him and while there were talking he agreed to call 911. Ky admits to telling police captain that his intent was to cut his neck with knife." Patient stated he had a similar experience in 2019 with attempt to OD on pills. (He clarifies it was not an attempt but had thoughts of plan to overdose in 2019) He stated he was admitted to [facility] at that time. Ky is not compliant with his medication and and admits to not taking meds. Ky stated he has been taking his prescribed prozac for the past three days. Ky has a therapist at [facility] (has a psychiatrist but no therapist). Patient denies hallucinations, paranoia, or delusional thinking Ky stated he drinks alcohol socially. He denies substance abuse. Ky is agreeable with recommendation for inpatient mental health treatment." Psychiatric ROS notable for no current nor history of symptoms of galilea, psychosis, OCD nor self-harm. Physical Exam Vital Signs (Past 24 Hours) Last Vital Signs Temp 36.3 C L 07/08/22 06:33 Pulse 76 07/08/22 06:33 Resp 18 07/08/22 06:33 BP 108/72 07/08/22 06:36 Pulse Ox 96 07/04/22 21:48 O2 Del Method 07/05/22 04:02 See admission H&P and DOD summary. Principal Diagnosis Major Depressive Disorder, recurrent Psychiatric Data See daily stay summary. In short, patient was engaged with the social/therapeu tic milieu of the unit, safety was maintained and the patient was cooperative with care. Medication changes included discontinuation of fluoxetine and initiation of sertraline 50mg qd and they tolerated this well. A family session was held and safety plan was completed prior to discharge. He actively and insightfully participated in safety planning and in discussions about ways to seek support and recognizing warning signs and utilizing coping skills. Reviewed mobile apps that could be used for additional ways to have their safety plan and contacts easily available should thoughts of SI re-emerge in the future. Reviewed importance of seeking emergency care should SI intensify, worsen or should they feel unsafe in the future which they agree to do. On the day of discharge he stated his mood was "pretty good and really happy to spend time with my family" and remained future-oriented including seeing his family, enjoying Thanksgiving break and engaging in aftercare appointments for psychiatry, therapy and [employer] student care and advocacy. Day of Discharge Assessment Today the patient voices readiness for discharge. They note improvement in mood and anxiety. They deny thoughts of harm to self or others. Thoughts are organized and they are clinically improved from admission. There is no evidence of psychosis. They improved in the hospital with support and medication adjustments. They agree to take medications as prescribed and keep follow-up appointments. At the time of the discharge they are deemed to be stable and appropriate for outpatient level of care. They are not deemed to be at imminent risk of harm to self or others. They are aware of emergency and crisis services. Knows to call 911 or go to nearest emergency care center if in a crisis which cannot be handled as an outpatient. Transition of Care Transition Of Care Record: was reviewed with the patient Advance Directives Advance Directives Information Provided: No Advance Directives: No Mental Health Advance Directive: No Advance Directives on File: No Living Will: No Power of Program Technician: No Advance Directives Reason:: Declines as Mental Health Visit. Suicide Risk Level Suicide Risk Level Comments: Acute risk is low given improvement in mood and denial of SI, lack of access to lethal means, plan to avoid substance use, hopefulness. Chronic risk is low to moderate given periods of impulsivity, emotional reactivity, prior psychiatric hospitalizations but also with protective factors including strong family support, student, future-focused, outpatient care in place, positive coping skills, positive problem solving, high capacity to establish therapeutic alliance. Counseled on ways to reduce acute and chronic risk including engaging with outpatient providers, using safety plan if needed, utilizing supports, taking medication, reducing/avoiding alcohol use and using coping skills. Modifiable risk factors of SI and depression were addressed during hospitalization through development of new coping skills, family meeting, safety planning, and medication adjustments. Risk Factors Assessment Male: Yes : Yes Do You Have Access To A Gun?: No Mental Health Diagnoses: Yes Previous Attempt: No Family History of Suicide: No Previous Psychiatric Hospitalization: Yes Hopelessness: No Protective Factors Assessment Employed: No Stable Relationships: Yes Supportive Family: Yes Discharge Data Lab Results 07/04/22 07/04/22 07/04/22 21:56 21:56 21:56 WBC RBC Hgb Hct MCV MCH MCHC RDW Std Deviation RDW Coeff of Frank Plt Count MPV Immature Gran % (Auto) Neut % (Auto) Lymph % (Auto) [place] % (Auto) Eos % (Auto) Baso % (Auto) Neut # (Auto) Lymph # (Auto) [place] # (Auto) Eos # (Auto) Baso # (Auto) Immature Gran # (Auto) Sodium Potassium Chloride Carbon Dioxide Anion Gap BUN Creatinine Est Cr Clr Drug Dosing Est GFR ( Amer) Est GFR (Non-Af Amer) BUN/Creatinine Ratio Glucose Calcium Total Bilirubin AST ALT Alkaline Phosphatase Total Protein Albumin Globulin Albumin/Globulin Ratio TSH Urine Color Yellow Urine Appearance Clear Urine pH 6.5 Ur Specific Avis 1.003 Urine Protein Negative Urine Glucose (UA) Negative Urine Ketones Negative Urine Blood Negative Urine Nitrite Negative Urine Bilirubin Negative Urine Urobilinogen Negative Ur Leukocyte Esterase Negative Salicylates Urine Opiates Screen Neg Ur Methadone, Qual Neg Acetaminophen Urine Barbiturates Neg Ur Phencyclidine (PCP) Neg U Amphetamin/Meth Scrn Neg MDMA (Ecstasy) Screen Neg U Benzodiazepines Scrn Neg Ur Cocaine Metabolite Neg U Marijuana (THC) Screen Pos H U Marijuana THC Carboxy Drug Screen Comment Ethyl Alcohol mg/dL SARS-CoV-2, RNA, NAAT NEGATIVE 07/04/22 07/04/22 07/04/22 21:56 23:35 23:35 WBC 4.43 L RBC 4.99 Hgb 15.3 Hct 44.6 MCV 89.4 MCH 30.7 MCHC 34.3 RDW Std Deviation 40.4 RDW Coeff of Frank 12.6 Plt Count 311 MPV 9.5 Immature Gran % (Auto) 0.2 Neut % (Auto) 53.5 Lymph % (Auto) 35.9 [place] % (Auto) 8.6 Eos % (Auto) 0.7 Baso % (Auto) 1.1 Neut # (Auto) 2.37 Lymph # (Auto) 1.59 [place] # (Auto) 0.38 Eos # (Auto) 0.03 Baso # (Auto) 0.05 Immature Gran # (Auto) 0.01 Sodium 142 Potassium 3.9 Chloride 108 H Carbon Dioxide 27 Anion Gap 7 BUN 7 Creatinine 0.72 Est Cr Clr Drug Dosing 140.5 Est GFR ( Amer) > 150.0 Est GFR (Non-Af Amer) 135.2 BUN/Creatinine Ratio 9.7 L Glucose 93 Calcium 9.8 Total Bilirubin 0.4 AST 18 ALT 14 Alkaline Phosphatase 89 Total Protein 8.4 H Albumin 5.0 Globulin 3.4 Albumin/Globulin Ratio 1.5 TSH Urine Color Urine Appearance Urine pH Ur Specific Avis Urine Protein Urine Glucose (UA) Urine Ketones Urine Blood Urine Nitrite Urine Bilirubin Urine Urobilinogen Ur Leukocyte Esterase Salicylates Urine Opiates Screen Ur Methadone, Qual Acetaminophen Urine Barbiturates Ur Phencyclidine (PCP) U Amphetamin/Meth Scrn MDMA (Ecstasy) Screen U Benzodiazepines Scrn Ur Cocaine Metabolite U Marijuana (THC) Screen U Marijuana THC Carboxy 24 H Drug Screen Comment SEE NOTE Ethyl Alcohol mg/dL SARS-CoV-2, RNA, NAAT 07/04/22 07/04/22 07/04/22 23:35 23:35 23:35 WBC RBC Hgb Hct MCV MCH MCHC RDW Std Deviation RDW Coeff of Frank Plt Count MPV Immature Gran % (Auto) Neut % (Auto) Lymph % (Auto) [place] % (Auto) Eos % (Auto) Baso % (Auto) Neut # (Auto) Lymph # (Auto) [place] # (Auto) Eos # (Auto) Baso # (Auto) Immature Gran # (Auto) Sodium Potassium Chloride Carbon Dioxide Anion Gap BUN Creatinine Est Cr Clr Drug Dosing Est GFR ( Amer) Est GFR (Non-Af Amer) BUN/Creatinine Ratio Glucose Calcium Total Bilirubin AST ALT Alkaline Phosphatase Total Protein Albumin Globulin Albumin/Globulin Ratio TSH 3.153 Urine Color Urine Appearance Urine pH Ur Specific Avis Urine Protein Urine Glucose (UA) Urine Ketones Urine Blood Urine Nitrite Urine Bilirubin Urine Urobilinogen Ur Leukocyte Esterase Salicylates < 3.0 L Urine Opiates Screen Ur Methadone, Qual Acetaminophen < 3 L Urine Barbiturates Ur Phencyclidine (PCP) U Amphetamin/Meth Scrn MDMA (Ecstasy) Screen U Benzodiazepines Scrn Ur Cocaine Metabolite U Marijuana (THC) Screen U Marijuana THC Carboxy Drug Screen Comment Ethyl Alcohol mg/dL 129.4 H SARS-CoV-2, RNA, NAAT Hospital Course (1) Recurrent severe major depressive disorder with anxiety: (2) Suicidal ideation: (3) Eating disorder, unspecified: Plan 07/07/22: Increase sertraline to 50mg qd tomorrow. 07/06/22: Continue current medications and tx plan. 07/05/22: The patient was admitted to the [facility] (locked inpatient mental health unit) on q15 min checks (behavioral with suicide precautions) for safety. The patient will participate in group, recreational, and milieu therapies and will be offered additional individual and family sessions as clinically appropriate. -Start sertraline 25mg qd tomorrow morning as he wants to discuss it with his family too prior to starting this and understands he can decline dose tomorrow if he changes his mind -Vistaril 50mg qhs prn for insomnia Mental Health & Subst Abuse Tx Psychiatrist Name of Psychiatrist: [facility]iatric- MIHAELA Soriano Psychiatrist's Date of Appointment with Psychiatrist: 08/04/22 Time of Appointment with Psychiatrist: 2:30p Psychiatric Appointment Comment: telehealth Therapist Name of Therapist: [facility] Shannan Psychiatric-on waitlist Therapist's Date of Therapist Appointment: 08/04/22 Time of Therapist Appointment: 2:30p Therapy Appointment Comment: telehealth Turkey Roll Maker Name of Turkey Roll Maker: None Post Discharge Appointments Primary Care Physician Name Of Family Doctor: Sherita Primary Care Provider Appointment Comment: follow up as needed Other #1: Name of Aftercare Appointment: Student Care and Advocacy Phone Number of Aftercare Appointment: [phone] Aftercare Appointment Comment: Zoom link will be sent to U email #2: Name of Aftercare Appointment: [facility] Phone Number of Aftercare Appointment: [phone] Time of Aftercare Appointment: group meets every at 4pm Aftercare Appointment Comment: [facility] [place] [address] Contact Information Discharge Discharge Address: [address] [place] [address] Discharge Plan Discharge Items Patient Disposition: Home - Self-Care Reason For Visit: MDD Discharge Diagnosis: Major Depressive Disorder Activity: Resume your previous activity Non-emergency contact: Primary Care Provider, Psychiatrist and Therapist Call non-emergency contact if: you have any medication questions and your symptoms worsen Follow-up/Referrals: PCP,NO [Primary Care Provider] - Diet: Regular Addtl Attending Provider Instructions: Optional mobile apps: -Suicide safety plan -Virtual Hope Box SPECIAL CARE INSTRUCTIONS: 1. Follow through with your scheduled aftercare appointments. If unable to keep an appointment, please call to reschedule. 2. Take your medication only as prescribed. Medication should not be changed or stopped without the approval of your doctor. In the event of worsening symptoms or concerns about side effects, contact your doctor immediately. 3. Utilize new healthy coping skills, anger management skills, and stress management skills learned during your hospitalization. Journal feelings and process them with a support person. Identify stressors or situations that may result in relapse, deterioration or inappropriate behaviors and develop a plan to deal with those issues. 4. If your coping skills are ineffective and you are in crisis, contact your outpatient providers for direction. If unable to reach your providers, please call the [facility] CRISIS LINE AT , go to the [facility] walk-in center at [address] [place] [address] [address], [place], or go to the closest Emergency Room. 5. Avoid alcohol and un-prescribed drugs. 6. You have been provided with the Mental Health Advance Directives Pamphlet for your review. 7. Your condition is stable for discharge to outpatient level of care, but recovery is an ongoing process. Ifthoughts to harm yourself or others return, follow the safety plan developed during your stay. Planning for a safe return home includes securing weapons. Our treatment team recommends weaponsbe removed from the home until your outpatient provider reassesses your progress. In rare cases where the items themselvescannot be removed, guns and ammunitionshould be secured separatelyand keys stored by a reliable personoutside of the home. If you were admitted on an involuntary commitment, the police or other legal authorities may be involved in this process. AFTERCARE APPOINTMENTS: * Please call your insurance company prior to your scheduled appointment to confirm your aftercare providers are covered. Take your insurance information to your appointments. WHO TO CALL AND WHEN: Medical Emergencies: For questions or emergencies related to your hospital stay, please contact the Inpatient Behavioral Health Unit at [phone]. A wire mesh filter fabricator is on-call 15/03 for the Behavioral Health Unit for emergencies At any time you feel your situation is an emergency, you may also call 911 immediately. Pending Studies at Discharge: No Stand-Alone Forms: My [facility] Medications and DC Order Prescriptions: New sertraline 50 mg Tablet 50 mg PO QAM 30 Days Qty: 30 0RF Discontinued fluoxetine 20 mg capsule 20 mg PO DAILY Discharge Orders: Discharge Order (Routine); Ordered 07/08/22 Ordered By: Madhuri Mitchell Admission Data Admit Date/Time: 07/05/22 03:36 Attending Provider: Madhuri Mitchell Admit Provider: Madhuri Mitchell Primary Care Provider: PCP,NO Other Interventions: Discharge Summary Assessment (RN) Last Done: 07/08/22 12:38 PSY Interdisciplinary Discharge Planning Last Done: 07/08/22 12:53 Coding Level of Care Code 93420 D/C day mgmt > 30 min Diagnoses Recurrent severe major depressive disorder with anxiety F33.2; F41.9 Suicidal ideation R45.851 Eating disorder, unspecified F50.9 Time Spent (min) 35
== END 2022-07-08 13:18 | disposition home or self-care (01) | DRG 885 ==
LOC: ED 21:40 → 3S 07-05 03:36